=== PATIENT | female | born 1970 ===

== ENCOUNTER 2019-04-16 16:13 | Outpatient (CLI) | payer OTHER ==
[~2019-04-16] VITALS: Ht 165.1 cm; Wt 53.5 kg
== END 2019-04-16 16:30 | disposition home or self-care (01) ==
LOC: OFIC 805 16:13
DX: K21.0 Gastro-esophageal reflux disease with esophagitis (principal); R05 Cough; R09.81 Nasal congestion; H74.8X3 Other specified disorders of middle ear and mastoid, bilateral